=== PATIENT | female | born 1945 | race Caucasian/White ===

== ENCOUNTER → 2019-12-26 | Outpatient (CLI) | payer MEDICARE ==
[~2019-12-26] MED LIST: COLE1TAB5 PO; DOXY100T PO; ESCI10TA10 PO; FLEC100T PO; GABA300C10 PO; HYDR25TA6 PO; HYDROCHLOROTH12.5 MG PO; LISI-170 PO; METF500T17 PO; NITR0.4T28 SL; POLY17PO5 PO; SIMV40TA20 PO; TRAM50TA2 PO; WARF10TA PO; WARF7.5T PO
== END | disposition home or self-care (01) ==
LOC: RAD 11:36
PROVIDERS: ATTEND Physician Assistant
DX: M50.31 Other cervical disc degeneration, high cervical region (principal); M48.062 Spinal stenosis, lumbar region with neurogenic claudication; M51.36 Other intervertebral disc degeneration, lumbar region; M51.26 Other intervertebral disc displacement, lumbar region; M25.78 Osteophyte, vertebrae; M12.9 Arthropathy, unspecified; M48.02 Spinal stenosis, cervical region; M62.89 Other specified disorders of muscle
CPT/HCPCS: 72141; 72148

== ENCOUNTER → 2020-01-09 | Outpatient (CLI) | payer MEDICARE | END | disposition home or self-care (01) | LOC: RAD 09:04 | PROVIDERS: ATTEND Psychiatry & Neurology Neurology | DX: G37.8 Other specified demyelinating diseases of central nervous system (principal); G31.9 Degenerative disease of nervous system, unspecified; R51 Headache | CPT/HCPCS: 70551 ==

== ENCOUNTER 2020-08-07 17:23 | Emergency (ER) | payer MEDICARE ==
[~2020-08-07] VITALS: Ht 157.5 cm; Wt 100.0 kg
--- NOTE | 2020-08-07 17:37 | NUR ---
PT BIB EMS FOR DIZZINESS AND HIGH BS. PER EMS BS WAS 303. GIVEN 500 ML NS NOW 284. WAS [facility] [place] [facility]. PT DENIES SI. DENIES, CP, SOB OUR NEW COUGH. 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 EKG DONE.
--- NOTE | 2020-08-07 18:50 | NUR ---
report to jose luis
[2020-08-07 19:07] LABS: ANION GAP 6 mmol/L (5-15); CALCIUM 8.1 mg/dL (8.5-10.1); CHLORIDE 102 mmol/L (98-107); CREATININE 1.01 mg/dL (0.55-1.02)
[2020-08-07 19:25] LABS: BASOPHILS # (AUTO) 0.03 x10^3/uL (0-0.1); BASOPHILS % (AUTO) 0 % (0-1); EOSINOPHILS # (AUTO) 0.11 x10^3/uL (0-0.4); EOSINOPHILS % (AUTO) 1 % (1-7); LYMPHOCYTES # (AUTO) 2.05 x10^3/uL (1-3.4); LYMPHOCYTES % (AUTO) 24 % (22-44); MD NO; MEAN CORPUSCULAR VOLUME 87.7 fL (80-100); MEAN PLATELET VOLUME 9.2 fL (7.4-10.4); MONOCYTES # (AUTO) 0.78 x10^3/uL (0.2-0.8); MONOCYTES % (AUTO) 9 % (2-9); NEUTROPHILS # (AUTO) 5.79 x10^3/uL (1.8-6.8); NEUTROPHILS % (AUTO) 66 % (42-75); PLATELET COUNT 233 x10^3/uL (130-400); RED BLOOD COUNT 4.21 x10^6/uL (3.82-5.3)
[2020-08-07 20:38] VITALS: BP 104/60
== END 2020-08-07 20:41 | disposition home or self-care (01) ==
LOC: ED 18:00
DX: E10.65 Type 1 diabetes mellitus with hyperglycemia (principal); R42 Dizziness and giddiness; I50.9 Heart failure, unspecified; I11.0 Hypertensive heart disease with heart failure; E78.5 Hyperlipidemia, unspecified; Z90.49 Acquired absence of other specified parts of digestive tract; Z87.891 Personal history of nicotine dependence
CPT/HCPCS: 36415; 80048; 82040; 85025; 93005; 99284